=== PATIENT | male | born 1965 | race American Indian/Alaskan Native ===

== ENCOUNTER 2019-02-11 19:00 | Inpatient (IN) | payer MEDICARE ==
--- NOTE | 2019-02-11 20:06 | Event Note ---
ED Screening Note Date of service: 02/11/19 Time: 20:03 ED Screening Note: 54 y/o male with ESRD missed dialysis this morning. Goes on Friday , and Friday. PMH HTN, ESRD CVA with left side weakness. Uses a cane and walker to ambulate. This initial assessment/diagnostic orders/clinical plan/treatment(s) is/are subject to change based on patients health status, clinical progression and re- assessment by fellow clinical providers in the ED. Further treatment and workup at subsequent clinical providers discretion. Patient/guardian urged not to elope from the ED as their condition may be serious if not clinically assessed and managed. Initial orders include:
[2019-02-11 21:03] LABS: Albumin 3.5 g/dL (3.9-5)
[2019-02-11 21:23] LABS: Hematocrit 37.6 % (35.5-45.6); Hemoglobin 11.9 gm/dl (11.8-15.2); Mean Corpuscular HGB Conc 32 % (32-34); Mean Corpuscular Volume 84 fl (84-94); Platelet Count 148 K/mm3 (140-440); Red Blood Count 4.49 M/mm3 (3.65-5.03); Red Cell Distribution Width 16.5 % (13.2-15.2)
--- NOTE | 2019-02-11 21:47 | Emergency Department Report ---
ED General Adult HPI - General Chief complaint: Medical Clearance Stated complaint: NEED DIALYSIS Time Seen by Provider: 02/11/19 20:03 Source: patient, EMS Mode of arrival: Ambulatory Limitations: Physical Limitation - History of Present Illness Initial comments: This is a 54-year-old -[place] male who presents to the emergency room for dialysis. [place] not calm to take him to dialysis today. Past medical history of CVA with left-sided weakness, hypertension, and end-stage renal disease on dialysis Friday, , and Friday. Patient security system installer is Dr. Aponte at [facility] er. Denies shortness of breath, edema, chest pain, palpitations. Onset/Timin -: days(s) Radiation: non-radiation Severity scale (0 -10): 0 Associated Symptoms: denies other symptoms Treatments Prior to Arrival: none - Related Data Allergies Allergy/AdvReac Type Severity Reaction Status Date / Time No Known Allergies Allergy Unverified 02/11/19 20:08 ED Review of Systems ROS: Stated complaint: NEED DIALYSIS Other details as noted in HPI Constitutional: denies: chills, fever Respiratory: denies: cough, shortness of breath, wheezing ED Past Medical Hx - Past Medical History Hx Hypertension: Yes Hx CVA: Yes (L sided deficits) Hx Renal Disease: Yes (T,TH,Sat) - Surgical History Past Surgical History?: No Additional Surgical History: R chest port - Social History Smoking Status: Never Smoker Substance Use Type: None ED Physical Exam - General Limitations: Physical Limitation ED Course Vital Signs 02/11/19 20:02 Temperature 98.7 F Pulse Rate 96 H Respiratory 18 Rate Blood Pressure 144/110 O2 Sat by Pulse 100 Oximetry - Reevaluation(s) Reevaluation #1: 02/11/19 22:28 Quality Rep [address] system [address] Mckoy who agreed to admit patient for dialysis in the morning due to hyperkalemia. Reevaluation #2: 02/11/19 22:[address] Patel for admission for dialysis. She agreed to admit patient with consult to Dr. Mckoy. ED Medical Decision Making - Lab Data Result diagrams: 02/11/19 20:22 02/11/19 20:22 Lab Results 02/11/19 02/11/19 Range/Units 20:22 20:22 WBC 4.7 (4.5-11.0) K/mm3 RBC 4.49 (3.65-5.03) M/mm3 Hgb 11.9 (11.8-15.2) gm/dl Hct 37.6 (35.5-45.6) % MCV 84 (84-94) fl MCH 26 L (28-32) pg MCHC 32 (32-34) % RDW 16.5 H (13.2-15.2) % Plt Count 148 (140-440) K/mm3 Lymph % (Auto) Not Reportable [place] % (Auto) Not Reportable Eos % (Auto) Not Reportable Baso % (Auto) Not Reportable Lymph # Not Reportable [place] # Not Reportable Eos # Not Reportable Baso # Not Reportable Total Counted 100 Seg Neuts % (Manual) 62.0 (40.0-70.0) % Band Neutrophils % 0 % Lymphocytes % (Manual) 29.0 (13.4-35.0) % Reactive Lymphs % (Man) 0 % Monocytes % (Manual) 8.0 H (0.0-7.3) % Eosinophils % (Manual) 1.0 (0.0-4.3) % Basophils % (Manual) 0 (0.0-1.8) % Metamyelocytes % 0 % Myelocytes % 0 % Promyelocytes % 0 % Blast Cells % 0 % Seg Neutrophils # Not Reportable Seg Neutrophils # Man 2.9 (1.8-7.7) K/mm3 Band Neutrophils # 0.0 K/mm3 Lymphocytes # (Manual) 1.4 (1.2-5.4) K/mm3 Abs React Lymphs (Man) 0.0 K/mm3 Monocytes # (Manual) 0.4 (0.0-0.8) K/mm3 Eosinophils # (Manual) 0.0 (0.0-0.4) K/mm3 Basophils # (Manual) 0.0 (0.0-0.1) K/mm3 Metamyelocytes # 0.0 K/mm3 Myelocytes # 0.0 K/mm3 Promyelocytes # 0.0 K/mm3 Blast Cells # 0.0 K/mm3 Large Platelets 1+ Poikilocytosis 1+ Anisocytosis 1+ Sodium 137 (137-145) mmol/L Potassium 5.2 H (3.6-5.0) mmol/L Chloride 102.9 (98-107) mmol/L Carbon Dioxide 22 (22-30) mmol/L Anion Gap 17 mmol/L BUN 37 H (9-20) mg/dL Creatinine 9.2 H (0.8-1.5) mg/dL Estimated GFR 6 ml/min BUN/Creatinine Ratio 4 % Glucose 69 L (75-100) mg/dL Calcium 9.0 (8.4-10.2) mg/dL Total Bilirubin 0.40 (0.1-1.2) mg/dL AST 11 (5-40) units/L ALT 9 (7-56) units/L Alkaline Phosphatase 80 (35-129) units/L Total Protein 8.6 H (6.3-8.2) g/dL Albumin 3.5 L (3.9-5) g/dL Albumin/Globulin Ratio 0.7 % - Medical Decision Making Patient was examined by me. Patient is nontoxic appearing and stable. Vitals are normal. Obtained labs. Past medical history end-stage renal disease, hypertension and CVA with left sided weakness. Hyperkalemia findings on labs. Negative shortness of breath or hypoxia. Quality Rep security system installer Dr. Mckoy who agreed to admit patient for dialysis in the morning. Consulted hospitalist Dr. Patel who agreed to admit patient. Patient informed of ER plans. Critical care attestation.: If time is entered above; I have spent that time in minutes in the direct care of this critically ill patient, excluding procedure time. ED Disposition Clinical Impression: Hyperkalemia, ESRD (end stage renal disease) on dialysis Disposition: OP ADMIT IP TO THIS HOSP Is pt being admited?: Yes Condition: Stable
[2019-02-11 22:22] LABS: Anisocytosis 1+; Basophils % (Manual) 0 % (0.0-1.8); Large Platelets 1+; Poikilocytosis 1+; Total Cells Counted 100
[2019-02-11 22:43] LABS: Platelet Estimate Consistent w Auto
--- NOTE | 2019-02-11 23:34 | History and Physical Report ---
History of Present Illness Chief complaint: I missed dialysis History of present illness: 54-year-old male history of end-stage renal disease status post stroke with left-sided weakness. Also has hypertension, use a cane to ambulate. Has issues getting around. He missed dialysis today because the transportation van was not able to come up the hill to where he lives to take him to dialysis. He has dialysis with Dr. Aponte at [facility]. He denies shortness of breath, swelling or confusion. -He is rather frustrated because he states that they have done this in the past. That the transportation company/ambulance has refused to come up the steep driveway where he lives because it is inconvenient for them. And he would like to maintain compliance with dialysis. He states that the most of called his caregiver, they did not call him today about the refusal to come and pick him up. Past medical history; end-stage renal disease, history of stroke status post left-sided weakness, hypertension Surgical history; permacath placement, right chest wall Social history; lives at home, ambulates with a cane, denies history of smoking alcohol abuse or illicit drug use Family history; hypertension Medications and Allergies Allergies Allergy/AdvReac Type Severity Reaction Status Date / Time No Known Allergies Allergy Verified 02/11/19 23:50 Review of Systems All systems: negative Constitutional: no weight loss Ears, nose, mouth and throat: no ear pain Cardiovascular: no chest pain Respiratory: no cough Gastrointestinal: no abdominal pain Genitourinary Male: no dysuria Rectal: no pain Musculoskeletal: no neck stiffness Integumentary: no rash Neurological: no head injury Psychiatric: no anxiety Endocrine: no cold intolerance Hematologic/Lymphatic: no easy bruising Allergic/Immunologic: no urticaria Exam - Constitutional Vitals: Temp Pulse Resp BP Pulse Ox 98.7 F 81 15 147/97 97 02/11/19 20:02 02/11/19 22:30 02/11/19 23:04 02/11/19 22:30 02/11/19 23:04 General appearance: Present: no acute distress, well-nourished - EENT Eyes: Present: PERRL ENT: hearing intact, clear oral mucosa - Neck Neck: Present: supple, normal ROM - Respiratory Respiratory effort: normal Respiratory: bilateral: CTA - Cardiovascular Heart Sounds: Present: S1 & S2. Absent: rub, click - Extremities Extremities: pulses symmetrical, No edema Peripheral Pulses: within normal limits - Abdominal General gastrointestinal: Present: soft, non-tender, non-distended, normal bowel sounds Male genitourinary: Present: normal - Integumentary Integumentary: Present: clear, warm, dry - Musculoskeletal Musculoskeletal: gait normal, strength equal bilaterally - Psychiatric Psychiatric: appropriate mood/affect, intact judgment & insight - Neurologic Neurologic: CNII-XII intact, focal deficits (Left side profound weakness, left upper extremity is contracted) Results - Labs CBC & Chem 7: 02/11/19 20:22 02/11/19 20:22 Labs: Laboratory Last Values WBC 4.7 K/mm3 (4.5-11.0) 02/11/19 20: RBC 4.49 M/mm3 (3.65-5.03) 02/11/19 20:22 Hgb 11.9 gm/dl (11.8-15.2) 02/11/19 20: Hct 37.6 % (35.5-45.6) 02/11/19 20:22 MCV 84 fl (84-94) 02/11/19 20:22 MCH 26 pg (28-32) L 02/11/19 20:22 MCHC 32 % (32-34) 02/11/19 20: RDW 16.5 % (13.2-15.2) H 02/11/19 20:22 Plt Count 148 K/mm3 (140-440) 02/11/19 20:22 Lymph % (Auto) Not Reportable 02/11/19 20:22 [place] % (Auto) Not Reportable 02/11/19 20:22 Eos % (Auto) Not Reportable 02/11/19 20:22 Baso % (Auto) Not Reportable 02/11/19 20:22 Lymph # Not Reportable 02/11/19 20:22 [place] # Not Reportable 02/11/19 20:22 Eos # Not Reportable 02/11/19 20: Baso # Not Reportable 02/11/19 20:22 Add Manual Diff Complete 02/11/19 20:22 Total Counted 100 02/11/19 20: Seg Neuts % (Manual) 62.0 % (40.0-70.0) 02/11/19 20:22 Band Neutrophils % 0 % 10/10/19 20:22 Lymphocytes % (Manual) 29.0 % (13.4-35.0) 02/11/19 20:22 Reactive Lymphs % (Man) 0 % 02/11/19 20:22 Monocytes % (Manual) 8.0 % (0.0-7.3) H 02/11/19 20:22 Eosinophils % (Manual) 1.0 % (0.0-4.3) 02/11/19 20:22 Basophils % (Manual) 0 % (0.0-1.8) 02/11/19 20:22 Metamyelocytes % 0 % 02/11/19 20:22 Myelocytes % 0 % 02/11/19 20: Promyelocytes % 0 % 02/11/19 20: Blast Cells % 0 % 02/11/19 20:22 Nucleated RBC % Not Reportable 02/11/19 20:22 Seg Neutrophils # Not Reportable 02/11/19 20:22 Seg Neutrophils # Man 2.9 K/mm3 (1.8-7.7) 02/11/19 20:22 Band Neutrophils # 0.0 K/mm3 02/11/19 20:22 Lymphocytes # (Manual) 1.4 K/mm3 (1.2-5.4) 02/11/19 20:22 Abs React Lymphs (Man) 0.0 K/mm3 02/11/19 20:22 Monocytes # (Manual) 0.4 K/mm3 (0.0-0.8) 02/11/19 20:22 Eosinophils # (Manual) 0.0 K/mm3 (0.0-0.4) 02/11/19 20:22 Basophils # (Manual) 0.0 K/mm3 (0.0-0.1) 02/11/19 20:22 Metamyelocytes # 0.0 K/mm3 02/11/19 20:22 Myelocytes # 0.0 K/mm3 02/11/19 20:22 Promyelocytes # 0.0 K/mm3 02/11/19 20:22 Blast Cells # 0.0 K/mm3 02/11/19 20:22 WBC Morphology Not Reportable 02/11/19 20:22 Hypersegmented Neuts Not Reportable 02/11/19 20:22 Hyposegmented Neuts Not Reportable 02/11/19 20:22 Hypogranular Neuts Not Reportable 02/11/19 20:22 Smudge Cells Not Reportable 02/11/19 20:22 Toxic Granulation Not Reportable 02/11/19 20:22 Toxic Vacuolation Not Reportable 02/11/19 20:22 Dohle Bodies Not Reportable 02/11/19 20:22 Pelger-Huet Anomaly Not Reportable 02/11/19 20:22 Tammi Rods Not Reportable 02/11/19 20:22 Platelet Estimate Consistent w auto 02/11/19 20:22 Clumped Platelets Not Reportable 02/11/19 20:22 Plt Clumps, EDTA Not Reportable 02/11/19 20:22 Large Platelets 1+ 02/11/19 20:22 Giant Platelets Not Reportable 02/11/19 20:22 Platelet Satelliting Not Reportable 02/11/19 20:22 Plt Morphology Comment Not Reportable 02/11/19 20:22 RBC Morphology Not Reportable 02/11/19 20:22 Dimorphic RBCs Not Reportable 02/11/19 20:22 Polychromasia Not Reportable 02/11/19 20:22 Hypochromasia Not Reportable 02/11/19 20:22 Poikilocytosis 1+ 02/11/19 20:22 Anisocytosis 1+ 02/11/19 20:22 Microcytosis Not Reportable 02/11/19 20:22 Macrocytosis Not Reportable 02/11/19 20:22 Spherocytes Not Reportable 02/11/19 20:22 Pappenheimer Bodies Not Reportable 02/11/19 20:22 Sickle Cells Not Reportable 02/11/19 20:22 Target Cells Not Reportable 02/11/19 20:22 Tear Drop Cells Not Reportable 02/11/19 20:22 Ovalocytes Not Reportable 02/11/19 20:22 Helmet Cells Not Reportable 02/11/19 20:22 [place] Bodies Not Reportable 02/11/19 20:22 [place] Rings Not Reportable 02/11/19 20:22 [place] Cells Not Reportable 02/11/19 20:22 Bite Cells Not Reportable 02/11/19 20:22 Crenated Cell Not Reportable 02/11/19 20:22 Elliptocytes Not Reportable 02/11/19 20:22 Acanthocytes (Spur) Not Reportable 02/11/19 20:22 Rouleaux Not Reportable 02/11/19 20:22 Hemoglobin C Crystals Not Reportable 02/11/19 20:22 Schistocytes Not Reportable 02/11/19 20:22 Malaria parasites Not Reportable 02/11/19 20:22 Marciano Bodies Not Reportable 02/11/19 20:22 Hem Pathologist Commnt No 02/11/19 20:22 Sodium 137 mmol/L (137-145) 02/11/19 20:22 Potassium 5.2 mmol/L (3.6-5.0) H 02/11/19 20:22 Chloride 102.9 mmol/L (98-107) 02/11/19 20:22 Carbon Dioxide 22 mmol/L (22-30) 02/11/19 20:22 Anion Gap 17 mmol/L 02/11/19 20:22 BUN 37 mg/dL (9-20) H 02/11/19 20:22 Creatinine 9.2 mg/dL (0.8-1.5) H 02/11/19 20:22 Estimated GFR 6 ml/min 02/11/19 20:22 BUN/Creatinine Ratio 4 % 02/11/19 20:22 Glucose 69 mg/dL (75-100) L 02/11/19 20:22 Calcium 9.0 mg/dL (8.4-10.2) 02/11/19 20:22 Total Bilirubin 0.40 mg/dL (0.1-1.2) 02/11/19 20:22 AST 11 units/L (5-40) 02/11/19 20:22 ALT 9 units/L (7-56) 02/11/19 20:22 Alkaline Phosphatase 80 units/L (35-129) 02/11/19 20:22 Total Protein 8.6 g/dL (6.3-8.2) H 02/11/19 20:22 Albumin 3.5 g/dL (3.9-5) L 02/11/19 20:22 Albumin/Globulin Ratio 0.7 % 02/11/19 20:22 Assessment and Plan Assessment and plan: 54-year-old man who presents to the hospital missed dialysis due to issues with transportation Missed dialysis/mild hyperkalemia BUN 37, theatrical rigger was called, he admitted to the hospital for dialysis Hypertension Continue home meds, optimize as needed DVT prophylaxis; heparin subcu Preventative health counseling performed for 17 minutes Needs Case management to arrange for his transportation company to ensure that he does not have any further missed HD sessions
[2019-02-11] MEDS ORDERED: SODIUM CHLORIDE FLUSH SYRINGE 10 ML IV PRN (23:48)
[2019-02-11] MEDS ORDERED: TYLENOL PO PRN (23:48)
[2019-02-11] MEDS ORDERED: ZOFRAN IV PRN (23:48)
[2019-02-12] MEDS: HEPARIN SUB-Q SCH ×3 (05:49→21:22)
[2019-02-12 08:47] LABS: Calcium 8.7 mg/dL (8.4-10.2)
[2019-02-12] MEDS ORDERED: HEPARIN 10,000 UNITS/10 ML IV PRN (09:00)
[2019-02-12] MEDS ORDERED: NACL 0.9% 100 ML IV PRN (09:00)
--- NOTE | 2019-02-12 09:50 | Discharge Summary ---
Providers - Providers Date of Admission: 02/11/19 23:48 Date of discharge: 02/12/19 Attending physician: COURTNEY CANTU MD 02/11/19 22:35 Consult to Physician [CONS] Stat Comment: Consulting Provider: ELZBIETA PRADHAN Physician Instructions: Reason For Exam: ESRD, dialysis in AM, hyperkalemia Primary care physician: REMY ANDERSON MD Hospitalization Reason for admission: missed dialysis Condition: Stable Hospital course: 54-year-old male history of end-stage renal disease status post stroke with left-sided weakness. Also has hypertension, use a cane to ambulate. Has issues getting around. He missed dialysis today because the transportation van was not able to come up the hill to where he lives to take him to dialysis. He has dialysis with Dr. Aponte at [facility]. He denies shortness of breath, swelling or confusion. -He is rather frustrated because he states that they have done this in the past. That the transportation company/ambulance has refused to come up the steep driveway where he lives because it is inconvenient for them. And he would like to maintain compliance with dialysis. He states that the most of called his caregiver, they did not call him today about the refusal to come and pick him up. Patient admitted to the floor no other complaints, hyperkalemia. Nephrology saw him and will get dialysis and will be discharged home. Discussed his correctional case records supervisor and social media sr strategy manager to address this issue of transportation. Patient doesn't need refill of medications. Time spent for discharge: 32 minutes - Discharge Diagnoses (1) ESRD (end stage renal disease) on dialysis Status: Acute (2) Hyperkalemia Status: Acute Core Measure Documentation - Palliative Care Palliative Care/ Comfort Measures: Not Applicable - Core Measures Any of the following diagnoses?: history only (CVA) Exam - Physical Exam Narrative exam: Not in cardiopulmonary distress. The patient appeared well nourished and normally developed. Vital signs as documented. Head exam is unremarkable. No scleral icterus . Neck is without jugular venous distension, thyromegaly, or carotid bruits. Lungs are clear to auscultation. Cardiac exam reveals regular rate and Rhythm. First and second heart sounds normal. No murmurs, rubs or gallops. Abdominal exam reveals normal bowel sounds, no masses, no organomegaly and no aortic enlargement. Extremities are nonedematous and both femoral and pedal pulses are normal. CONCRETE SPREADER: Alert and oriented 3. Left-sided hemiparesis. - Constitutional Vitals: Temp Pulse Resp BP Pulse Ox 98.7 F 70 20 140/84 98 02/11/19 20:02 02/12/19 00:19 02/12/19 01:32 02/12/19 00:19 02/12/19 00:19 Plan Activity: advance as tolerated Weight Bearing Status: Non-Weight Bearing Diet: renal Follow up with: REMY ANDERSON MD [Primary Care Provider] - 7 Days
--- NOTE | 2019-02-12 12:13 | Progress Note ---
Assessment and Plan Assessment and plan: End-stage renal disease on hemodialysis Missed dialysis Hyperkalemia - Patient did get dialysis today History of CVA with left sided residual left sided hemiparesis - Supportive care - Resume home medications Discharge planning issues; patient didn't have nowhere to go, confirmed with LAZARA and his sister. LAZARA is working for SNF placement DVT prophylaxis - Heparin - Patient Problems (1) ESRD (end stage renal disease) on dialysis Current Visit: Yes Status: Acute (2) Hyperkalemia Current Visit: Yes Status: Acute History Interval history: Patient was seen and evaluated this morning, patient didn't have any complaints overnight. Hospitalist Physical - Physical exam Narrative exam: Not in cardiopulmonary distress. The patient appeared well nourished and normally developed. Vital signs as documented. Head exam is unremarkable. No scleral icterus . Neck is without jugular venous distension, thyromegaly, or carotid bruits. Lungs are clear to auscultation. Cardiac exam reveals regular rate and Rhythm. First and second heart sounds normal. No murmurs, rubs or gallops. Abdominal exam reveals normal bowel sounds, no masses, no organomegaly and no aortic enlargement. Extremities are nonedematous and both femoral and pedal pulses are normal. CORE MAKER: Alert and oriented 3. Left-sided hemiparesis. - Constitutional Vitals: Temp Pulse Resp BP Pulse Ox 98.7 F 70 20 140/84 98 02/11/19 20:02 02/12/19 00:19 02/12/19 01:32 02/12/19 00:19 02/12/19 00:19 General appearance: Present: no acute distress, well-nourished Results - Labs CBC & Chem 7: 02/11/19 20:22 02/12/19 07:23 Labs: Laboratory Last Values WBC 4.7 K/mm3 (4.5-11.0) 02/11/19 20:22 RBC 4.49 M/mm3 (3.65-5.03) 02/11/19 20:22 Hgb 11.9 gm/dl (11.8-15.2) 02/11/19 20:22 Hct 37.6 % (35.5-45.6) 02/11/19 20:22 MCV 84 fl (84-94) 02/11/19 20:22 MCH 26 pg (28-32) L 02/11/19 20:22 MCHC 32 % (32-34) 02/11/19 20:22 RDW 16.5 % (13.2-15.2) H 02/11/19 20:22 Plt Count 148 K/mm3 (140-440) 02/11/19 20:22 Lymph % (Auto) Not Reportable 02/11/19 20:22 [place] % (Auto) Not Reportable 02/11/19 20:22 Eos % (Auto) Not Reportable 02/11/19 20:22 Baso % (Auto) Not Reportable 02/11/19 20:22 Lymph # Not Reportable 02/11/19 20:22 [place] # Not Reportable 02/11/19 20:22 Eos # Not Reportable 02/11/19 20: Baso # Not Reportable 02/11/19 20:22 Add Manual Diff Complete 02/11/19 20:22 Total Counted 100 02/11/19 20: Seg Neuts % (Manual) 62.0 % (40.0-70.0) 02/11/19 20:22 Band Neutrophils % 0 % 02/11/19 20:22 Lymphocytes % (Manual) 29.0 % (13.4-35.0) 02/11/19 20:22 Reactive Lymphs % (Man) 0 % 02/11/19 20: Monocytes % (Manual) 8.0 % (0.0-7.3) H 02/11/19 20:22 Eosinophils % (Manual) 1.0 % (0.0-4.3) 02/11/19 20:22 Basophils % (Manual) 0 % (0.0-1.8) 02/11/19 20:22 Metamyelocytes % 0 % 02/11/19 20:22 Myelocytes % 0 % 02/11/19 20:22 Promyelocytes % 0 % 02/11/19 20:22 Blast Cells % 0 % 02/11/19 20:22 Nucleated RBC % Not Reportable 02/11/19 20:22 Seg Neutrophils # Not Reportable 02/11/19 20:22 Seg Neutrophils # Man 2.9 K/mm3 (1.8-7.7) 02/11/19 20:22 Band Neutrophils # 0.0 K/mm3 02/11/19 20:22 Lymphocytes # (Manual) 1.4 K/mm3 (1.2-5.4) 02/11/19 20:22 Abs React Lymphs (Man) 0.0 K/mm3 02/11/19 20:22 Monocytes # (Manual) 0.4 K/mm3 (0.0-0.8) 02/11/19 20:22 Eosinophils # (Manual) 0.0 K/mm3 (0.0-0.4) 02/11/19 20:22 Basophils # (Manual) 0.0 K/mm3 (0.0-0.1) 02/11/19 20:22 Metamyelocytes # 0.0 K/mm3 02/11/19 20:22 Myelocytes # 0.0 K/mm3 02/11/19 20:22 Promyelocytes # 0.0 K/mm3 02/11/19 20:22 Blast Cells # 0.0 K/mm3 02/11/19 20:22 WBC Morphology Not Reportable 02/11/19 20:22 Hypersegmented Neuts Not Reportable 02/11/19 20:22 Hyposegmented Neuts Not Reportable 02/11/19 20:22 Hypogranular Neuts Not Reportable 02/11/19 20:22 Smudge Cells Not Reportable 02/11/19 20:22 Toxic Granulation Not Reportable 02/11/19 20:22 Toxic Vacuolation Not Reportable 02/11/19 20:22 Dohle Bodies Not Reportable 02/11/19 20:22 Pelger-Huet Anomaly Not Reportable 02/11/19 20:22 Tammi Rods Not Reportable 02/11/19 20:22 Platelet Estimate Consistent w auto 02/11/19 20:22 Clumped Platelets Not Reportable 02/11/19 20:22 Plt Clumps, EDTA Not Reportable 02/11/19 20:22 Large Platelets 1+ 02/11/19 20:22 Giant Platelets Not Reportable 02/11/19 20:22 Platelet Satelliting Not Reportable 02/11/19 20:22 Plt Morphology Comment Not Reportable 02/11/19 20:22 RBC Morphology Not Reportable 02/11/19 20:22 Dimorphic RBCs Not Reportable 02/11/19 20:22 Polychromasia Not Reportable 02/11/19 20:22 Hypochromasia Not Reportable 02/11/19 20:22 Poikilocytosis 1+ 02/11/19 20:22 Anisocytosis 1+ 02/11/19 20:22 Microcytosis Not Reportable 02/11/19 20:22 Macrocytosis Not Reportable 02/11/19 20:22 Spherocytes Not Reportable 02/11/19 20:22 Pappenheimer Bodies Not Reportable 02/11/19 20:22 Sickle Cells Not Reportable 02/11/19 20:22 Target Cells Not Reportable 02/11/19 20:22 Tear Drop Cells Not Reportable 02/11/19 20:22 Ovalocytes Not Reportable 02/11/19 20:22 Helmet Cells Not Reportable 02/11/19 20:22 [place] Bodies Not Reportable 02/11/19 20:22 [place] Rings Not Reportable 02/11/19 20:22 [place] Cells Not Reportable 02/11/19 20:22 Bite Cells Not Reportable 02/11/19 20:22 Crenated Cell Not Reportable 02/11/19 20:22 Elliptocytes Not Reportable 02/11/19 20:22 Acanthocytes (Spur) Not Reportable 02/11/19 20:22 Rouleaux Not Reportable 02/11/19 20:22 Hemoglobin C Crystals Not Reportable 02/11/19 20:22 Schistocytes Not Reportable 02/11/19 20:22 Malaria parasites Not Reportable 02/11/19 20:22 Marciano Bodies Not Reportable 02/11/19 20:22 Hem Pathologist Commnt No 02/11/19 20:22 Sodium 141 mmol/L (137-145) 02/12/19 07:23 Potassium 5.3 mmol/L (3.6-5.0) H 02/12/19 07:23 Chloride 103.2 mmol/L (98-107) 02/12/19 07:23 Carbon Dioxide 20 mmol/L (22-30) L 02/12/19 07:23 Anion Gap 23 mmol/L 02/12/19 07:23 BUN 43 mg/dL (9-20) H 02/12/19 07:23 Creatinine 10.4 mg/dL (0.8-1.5) H 02/12/19 07:23 Estimated GFR 6 ml/min 02/12/19 07:23 BUN/Creatinine Ratio 4 % 02/12/19 07:23 Glucose 78 mg/dL (75-100) 02/12/19 07:23 Calcium 8.7 mg/dL (8.4-10.2) 02/12/19 07:23 Total Bilirubin 0.40 mg/dL (0.1-1.2) 02/11/19 20:22 AST 11 units/L (5-40) 02/11/19 20:22 ALT 9 units/L (7-56) 02/11/19 20:22 Alkaline Phosphatase 80 units/L (35-129) 02/11/19 20:22 Total Protein 8.6 g/dL (6.3-8.2) H 02/11/19 20:22 Albumin 3.5 g/dL (3.9-5) L 02/11/19 20:22 Albumin/Globulin Ratio 0.7 % 02/11/19 20:22 Active Medications - Current Medications Current Medications: Generic Name Dose Route Start Last Admin Trade Name Freq PRN Reason Stop Dose Admin Acetaminophen 650 mg 02/11/19 23:48 Tylenol PO Q4H PRN Pain MILD(1-3)/Fever >100.5/PARIS Heparin Sodium (Porcine) 5,000 unit 02/12/19 06:00 02/12/19 05:49 Heparin SUB-Q 5,000 unit Q8HR RIYA Administration Heparin Sodium (Porcine) 1,000 unit 02/12/19 09:00 Heparin 10,000 Units/10 Ml IV CURTIS PRN hemodialysis Sodium Chloride 100 mls @ 999 mls/hr 02/12/19 09:00 Nacl 0.9% IV CURTIS PRN Hypotension Ondansetron HCl 4 mg 02/11/19 23:48 Zofran IV Q8H PRN Nausea And Vomiting Sodium Chloride 10 ml 02/12/19 10:00 Sodium Chloride Flush Syringe 10 Ml IV BID RIYA Sodium Chloride 10 ml 02/11/19 23:48 Sodium Chloride Flush Syringe 10 Ml IV PRN PRN LINE FLUSH
[2019-02-12 13:44] LABS: Hepatitis B Surface Antigen Non-Reactive (Negative); Hepatitis C Virus Antibody Non-Reactive (NonReactive)
--- NOTE | 2019-02-12 16:57 | Consultation ---
History of Present Illness - Reason for Consult Consult date: 02/12/19 end stage renal disease, hyperkalemia Requesting physician: ALAYNA HUSTON - History of Present Illness 54-year-old male who is not known to me with history of hypertension, remote cerebrovascular accident, has been on hemodialysis for 3 months now on a Friday schedule at [facility] under the care of Dr. Aponte. Patient was meant to receive dialysis yesterday but the ambulance could not come to pick him to transport him to the clinic because of the steep driveway at the personal [facility] where he resides. Patient got concerned and so came to the hospital for evaluation. Potassium was high at 5.3 mmol per liter. I was called about the patient and decided on medical management last night and to dialyze him today. Patient feels better now. He denies any chest pain, shortness of breath or worsening swelling. 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 He lives at a personal [facility] now). denies: smoking, alcohol abuse, prescription drug abuse, IV drug use Family history: CAD (mother had acute myocardial infarction at age 73. She is .), other (father has chronic kidney disease. Brother is alive and well) Medications and Allergies Allergies Allergy/AdvReac Type Severity Reaction Status Date / Time No Known Allergies Allergy Verified 02/11/19 23:50 Active Meds: Active Medications Acetaminophen (Tylenol) 650 mg PO Q4H PRN PRN Reason: Pain MILD(1-3)/Fever >100.5/PARIS Heparin Sodium (Porcine) (Heparin) 5,000 unit SUB-Q Q8HR [facility] Last Admin: 02/12/19 05:49 Dose: 5,000 unit Documented by: Heparin Sodium (Porcine) (Heparin 10,000 Units/10 Ml) 1,000 unit IV CURTIS PRN PRN Reason: hemodialysis Sodium Chloride (Nacl 0.9%) 100 mls @ 999 mls/hr IV CURTIS PRN PRN Reason: Hypotension Ondansetron HCl (Zofran) 4 mg IV Q8H PRN PRN Reason: Nausea And Vomiting Sodium Chloride (Sodium Chloride Flush Syringe 10 Ml) 10 ml IV BID RIYA Sodium Chloride (Sodium Chloride Flush Syringe 10 Ml) 10 ml IV PRN PRN PRN Reason: LINE FLUSH Review of Systems All systems: negative (Constitutional: no fever or chills. No anorexia or weight loss. HEENT: No sore throat or sinus drainage no hearing or vision impairment . Cardiovascular: No chest pain, shortness of breath, palpitations, lower extremity swelling or dizziness. Respiratory: No cough, sputum, shortness of breath, hemoptysis or wheezing. Gastrointestinal: No nausea, vomiting, diarrhea, abdominal pain, hematemesis or melena. Genitourinary: No frequency urgency dysuria or hematuria. hematologic: No abnormal bleeding or bruising. Integumentary: no pruritus or rash. Neurological: No headache has left-sided weakness from stroke. No numbness, no syncope or seizures. Musculoskeletal: No joint pains no stiffness. Psychiatry: no anxiety or depression) Exam - Vital Signs Vital signs: Vital Signs Temp Pulse Resp BP Pulse Ox 98.7 F 96 H 18 144/110 100 02/11/19 20:02 02/11/19 20:02 02/11/19 20:02 02/11/19 20:02 02/11/19 20:02 - Physical Exam Narrative exam: Middle-aged -[place] male lying in bed in no acute distress HEENT: NCAT, pink oral mucous membrane Neck: Supple, no venous distention CVS: S1S2 RRR with no murmur, rub or gallop Chest: Clear to auscultation, right chest permacath Abdomen: Protuberant, soft, nontender, no organomegaly, bowel sounds are present Extremities: No edema Genitourinary deferred Skin warm and dry Neuro: Awake, alert left hemiplegia Results - Lab Results 02/11/19 20:22 02/12/19 07:23 Most recent lab results Calcium 8.7 mg/dL (8.4-10.2) 02/12/19 07:23 Assessment and Plan - Patient Problems (1) Hyperkalemia Current Visit: Yes Status: Acute Plan to address problem: Hyperkalemia treated medically last night and then patient received dialysis today. (2) Hypertensive chronic kidney disease with stage 5 chronic kidney disease or end stage renal disease Current Visit: Yes Status: Acute Plan to address problem: Follow-up blood pressure and current medications (3) ESRD (end stage renal disease) on dialysis Current Visit: Yes Status: Acute Plan to address problem: Patient received dialysis today and is stable. Discussed with him the results getting a permanent access AV fistula or graft since he has been on dialysis for 3 months already. Likelihood of Renal recovery is significantly decreased. Given the risk of long-term tunneled dialysis catheter, Patient needs to go ahead and get an AV access. He says he will discuss with his dialysis team when he goes to the outpatient dialysis clinic (4) Hemiplegia of left nondominant side as late effect of cerebrovascular disease Current Visit: Yes Status: Acute
[2019-02-12] MEDS: SODIUM CHLORIDE FLUSH SYRINGE 10 ML IV SCH ×2 (21:22)
[2019-02-13] MEDS: HEPARIN SUB-Q SCH ×3 (05:59→22:51)
--- NOTE | 2019-02-13 09:55 | Progress Note ---
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 DVT prophylaxis - Heparin - Patient Problems (1) ESRD (end stage renal disease) on dialysis Current Visit: Yes Status: Acute (2) Hyperkalemia Current Visit: Yes Status: Acute History Interval history: Patient was seen and evaluated this morning, patient didn't have any complaints overnight. Hospitalist Physical - Physical exam Narrative exam: Not in cardiopulmonary distress. The patient appeared well nourished and normally developed. Vital signs as documented. Head exam is unremarkable. No scleral icterus . Neck is without jugular venous distension, thyromegaly, or carotid bruits. Lungs are clear to auscultation. Cardiac exam reveals regular rate and Rhythm. First and second heart sounds normal. No murmurs, rubs or gallops. Abdominal exam reveals normal bowel sounds, no masses, no organomegaly and no aortic enlargement. Extremities are nonedematous and both femoral and pedal pulses are normal. 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 Left-sided hemiparesis. - Constitutional Vitals: Temp Pulse Resp BP Pulse Ox 98.2 F 80 20 124/86 96 02/13/19 05:26 02/13/19 05:26 02/13/19 05:26 02/13/19 05:26 02/13/19 05:26 General appearance: Present: no acute distress, well-nourished Results - Labs CBC & Chem 7: 02/11/19 20:22 02/12/19 07:23 Labs: Laboratory Last Values WBC 4.7 K/mm3 (4.5-11.0) 02/11/19 20:22 RBC 4.49 M/mm3 (3.65-5.03) 02/11/19 20:22 Hgb 11.9 gm/dl (11.8-15.2) 02/11/19 20:22 Hct 37.6 % (35.5-45.6) 02/11/19 20:22 MCV 84 fl (84-94) 02/11/19 20:22 MCH 26 pg (28-32) L 02/11/19 20:22 MCHC 32 % (32-34) 02/11/19 20:22 RDW 16.5 % (13.2-15.2) H 02/11/19 20:22 Plt Count 148 K/mm3 (140-440) 02/11/19 20:22 Lymph % (Auto) Not Reportable 02/11/19 20:22 [place] % (Auto) Not Reportable 02/11/19 20:22 Eos % (Auto) Not Reportable 02/11/19 20:22 Baso % (Auto) Not Reportable 02/11/19 20:22 Lymph # Not Reportable 02/11/19 20:22 [place] # Not Reportable 02/11/19 20:22 Eos # Not Reportable 02/11/19 20:22 Baso # Not Reportable 02/11/19 20:22 Add Manual Diff Complete 02/11/19 20:22 Total Counted 100 02/11/19 20:22 Seg Neuts % (Manual) 62.0 % (40.0-70.0) 02/11/19 20:22 Band Neutrophils % 0 % 02/11/19 20:22 Lymphocytes % (Manual) 29.0 % (13.4-35.0) 02/11/19 20:22 Reactive Lymphs % (Man) 0 % 02/11/19 20: Monocytes % (Manual) 8.0 % (0.0-7.3) H 02/11/19 20:22 Eosinophils % (Manual) 1.0 % (0.0-4.3) 02/11/19 20:22 Basophils % (Manual) 0 % (0.0-1.8) 02/11/19 20:22 Metamyelocytes % 0 % 02/11/19 20:22 Myelocytes % 0 % 02/11/19 20:22 Promyelocytes % 0 % 02/11/19 20:22 Blast Cells % 0 % 02/11/19 20:22 Nucleated RBC % Not Reportable 02/11/19 20:22 Seg Neutrophils # Not Reportable 02/11/19 20:22 Seg Neutrophils # Man 2.9 K/mm3 (1.8-7.7) 02/11/19 20:22 Band Neutrophils # 0.0 K/mm3 02/11/19 20:22 Lymphocytes # (Manual) 1.4 K/mm3 (1.2-5.4) 10/10/19 20:22 Abs React Lymphs (Man) 0.0 K/mm3 02/11/19 20:22 Monocytes # (Manual) 0.4 K/mm3 (0.0-0.8) 02/11/19 20:22 Eosinophils # (Manual) 0.0 K/mm3 (0.0-0.4) 02/11/19 20:22 Basophils # (Manual) 0.0 K/mm3 (0.0-0.1) 02/11/19 20:22 Metamyelocytes # 0.0 K/mm3 02/11/19 20:22 Myelocytes # 0.0 K/mm3 02/11/19 20:22 Promyelocytes # 0.0 K/mm3 02/11/19 20:22 Blast Cells # 0.0 K/mm3 02/11/19 20:22 WBC Morphology Not Reportable 02/11/19 20:22 Hypersegmented Neuts Not Reportable 02/11/19 20:22 Hyposegmented Neuts Not Reportable 02/11/19 20:22 Hypogranular Neuts Not Reportable 02/11/19 20:22 Smudge Cells Not Reportable 02/11/19 20:22 Toxic Granulation Not Reportable 02/11/19 20:22 Toxic Vacuolation Not Reportable 02/11/19 20:22 Dohle Bodies Not Reportable 02/11/19 20:22 Pelger-Huet Anomaly Not Reportable 02/11/19 20:22 Tammi Rods Not Reportable 02/11/19 20:22 Platelet Estimate Consistent w auto 02/11/19 20:22 Clumped Platelets Not Reportable 02/11/19 20:22 Plt Clumps, EDTA Not Reportable 02/11/19 20:22 Large Platelets 1+ 02/11/19 20:22 Giant Platelets Not Reportable 02/11/19 20:22 Platelet Satelliting Not Reportable 02/11/19 20:22 Plt Morphology Comment Not Reportable 02/11/19 20:22 RBC Morphology Not Reportable 02/11/19 20:22 Dimorphic RBCs Not Reportable 02/11/19 20:22 Polychromasia Not Reportable 02/11/19 20:22 Hypochromasia Not Reportable 02/11/19 20:22 Poikilocytosis 1+ 02/11/19 20:22 Anisocytosis 1+ 10/10/19 20:22 Microcytosis Not Reportable 02/11/19 20:22 Macrocytosis Not Reportable 02/11/19 20:22 Spherocytes Not Reportable 02/11/19 20:22 Pappenheimer Bodies Not Reportable 02/11/19 20:22 Sickle Cells Not Reportable 02/11/19 20:22 Target Cells Not Reportable 02/11/19 20:22 Tear Drop Cells Not Reportable 02/11/19 20:22 Ovalocytes Not Reportable 02/11/19 20:22 Helmet Cells Not Reportable 02/11/19 20:22 [place] Bodies Not Reportable 02/11/19 20:22 [place] Rings Not Reportable 02/11/19 20:22 Delia Cells Not Reportable 02/11/19 20:22 Bite Cells Not Reportable 02/11/19 20:22 Crenated Cell Not Reportable 02/11/19 20:22 Elliptocytes Not Reportable 02/11/19 20:22 Acanthocytes (Spur) Not Reportable 02/11/19 20:22 Rouleaux Not Reportable 02/11/19 20:22 Hemoglobin C Crystals Not Reportable 02/11/19 20:22 Schistocytes Not Reportable 02/11/19 20:22 Malaria parasites Not Reportable 02/11/19 20:22 Marciano Bodies Not Reportable 02/11/19 20:22 Hem Pathologist Commnt No 02/11/19 20:22 Sodium 141 mmol/L (137-145) 02/12/19 07:23 Potassium 5.3 mmol/L (3.6-5.0) H 02/12/19 07:23 Chloride 103.2 mmol/L (98-107) 02/12/19 07:23 Carbon Dioxide 20 mmol/L (22-30) L 02/12/19 07:23 Anion Gap 23 mmol/L 02/12/19 07:23 BUN 43 mg/dL (9-20) H 02/12/19 07:23 Creatinine 10.4 mg/dL (0.8-1.5) H 02/12/19 07:23 Estimated GFR 6 ml/min 02/12/19 07:23 BUN/Creatinine Ratio 4 % 02/12/19 07:23 Glucose 78 mg/dL (75-100) 02/12/19 07:23 Calcium 8.7 mg/dL (8.4-10.2) 02/12/19 07:23 Total Bilirubin 0.40 mg/dL (0.1-1.2) 02/11/19 20:22 AST 11 units/L (5-40) 02/11/19 20:22 ALT 9 units/L (7-56) 02/11/19 20:22 Alkaline Phosphatase 80 units/L (35-129) 02/11/19 20:22 Total Protein 8.6 g/dL (6.3-8.2) H 02/11/19 20:22 Albumin 3.5 g/dL (3.9-5) L 02/11/19 20:22 Albumin/Globulin Ratio 0.7 % 02/11/19 20:22 Hepatitis A IgM Ab Non-reactive (NonReactive) 02/12/19 08:20 Hep Bs Antigen Non-reactive (Negative) 02/12/19 08:20 Hep B Core IgM Ab Non-reactive (NonReactive) 02/12/19 08:20 Hepatitis C Antibody Non-reactive (NonReactive) 02/12/19 08:20 Active Medications - Current Medications Current Medications: Generic Name Dose Route Start Last Admin Trade Name Freq PRN Reason Stop Dose Admin Acetaminophen 650 mg 02/11/19 23:48 Tylenol PO Q4H PRN Pain MILD(1-3)/Fever >100.5/PARIS Heparin Sodium (Porcine) 5,000 unit 02/12/19 06:00 02/13/19 05:59 Heparin SUB-Q 5,000 unit Q8HR RIYA Administration Heparin Sodium (Porcine) 1,000 unit 02/12/19 09:00 Heparin 10,000 Units/10 Ml IV CURTIS PRN hemodialysis Sodium Chloride 100 mls @ 999 mls/hr 02/12/19 09:00 Nacl 0.9% IV CURTIS PRN Hypotension Ondansetron HCl 4 mg 02/11/19 23:48 Zofran IV Q8H PRN Nausea And Vomiting Sodium Chloride 10 ml 02/12/19 10:00 02/12/19 21:22 Sodium Chloride Flush Syringe 10 Ml IV 10 ml BID RIYA Administration Sodium Chloride 10 ml 02/11/19 23:48 Sodium Chloride Flush Syringe 10 Ml IV PRN PRN LINE FLUSH
--- NOTE | 2019-02-13 12:29 | Progress Note ---
Assessment and Plan - Patient Problems (1) Hyperkalemia Current Visit: Yes Status: Acute Plan to address problem: Hyperkalemia treated medically last night and then patient received dialysis yesterday (2) ESRD (end stage renal disease) on dialysis Current Visit: Yes Status: Acute Plan to address problem: Patient received dialysis yesterday and is stable. Discussed with him the results getting a permanent access AV fistula or graft since he has been on dialysis for 3 months already. Likelihood of Renal recovery is significantly decreased. Given the risk of long-term tunneled dialysis catheter, Patient needs to go ahead and get an AV access. He says he will discuss with his dialysis team when he goes to the outpatient dialysis clinic (3) Hypertensive chronic kidney disease with stage 5 chronic kidney disease or end stage renal disease Current Visit: Yes Status: Acute Plan to address problem: Follow-up blood pressure and current medications (4) Hemiplegia of left nondominant side as late effect of cerebrovascular disease Current Visit: Yes Status: Acute Subjective Date of service: 02/13/19 Principal diagnosis: ESRD Interval history: Pt awake, alert, in NAD Objective - Vital Signs Vital signs: Vital Signs - 12hr 02/13/19 05:26 Temperature 98.2 F Pulse Rate 80 Respiratory 20 Rate Blood Pressure 124/86 O2 Sat by Pulse 96 Oximetry - General Appearance General appearance: well-developed, well-nourished, appears stated age EENT: ATNC, PERRL, mucous membranes moist Neck: no JVD Respiratory: Present: Clear to Ascultation Cardiology: regular, S1S2 Gastrointestinal: normoactive bowel sounds Integumentary: no rash, other (no edema ) - Lab 02/11/19 20:22 02/12/19 07:23 Most recent lab results Calcium 8.7 mg/dL (8.4-10.2) 02/12/19 07:23 Medications & Allergies - Medications Allergies/Adverse Reactions: Allergies No Known Allergies Allergy (Verified 02/11/19 23:50) Active Medications: Generic Name Dose Route Start Last Admin Trade Name Freq PRN Reason Stop Dose Admin Acetaminophen 650 mg 02/11/19 23:48 Tylenol PO Q4H PRN Pain MILD(1-3)/Fever >100.5/PARIS Heparin Sodium (Porcine) 5,000 unit 02/12/19 06:00 02/13/19 05:59 Heparin SUB-Q 5,000 unit Q8HR RIYA Administration Heparin Sodium (Porcine) 1,000 unit 02/12/19 09:00 Heparin 10,000 Units/10 Ml IV CURTIS PRN hemodialysis Sodium Chloride 100 mls @ 999 mls/hr 02/12/19 09:00 Nacl 0.9% IV CURTIS PRN Hypotension Ondansetron HCl 4 mg 02/11/19 23:48 Zofran IV Q8H PRN Nausea And Vomiting Sodium Chloride 10 ml 02/12/19 10:00 02/12/19 21:22 Sodium Chloride Flush Syringe 10 Ml IV 10 ml BID RIYA Administration Sodium Chloride 10 ml 02/11/19 23:48 Sodium Chloride Flush Syringe 10 Ml IV PRN PRN LINE FLUSH
[2019-02-13] MEDS: SODIUM CHLORIDE FLUSH SYRINGE 10 ML IV SCH ×2 (13:04→22:51)
[2019-02-14] MEDS: HEPARIN SUB-Q SCH ×2 (05:20→23:21)
--- NOTE | 2019-02-14 09:02 | Progress Note ---
Assessment and Plan - Patient Problems (1) Hyperkalemia Current Visit: Yes Status: Acute Plan to address problem: s/p medical treatment and HD. recheck BMP in AM. cont 2g K renal diet (2) ESRD (end stage renal disease) on dialysis Current Visit: Yes Status: Acute Plan to address problem: Patient received dialysis yesterday and is stable. Discussed with him the results getting a permanent access AV fistula or graft since he has been on dialysis for 3 months already. Likelihood of Renal recovery is significantly decreased. Given the risk of long-term tunneled dialysis catheter, Patient needs to go ahead and get an AV access. He says he will discuss with his dialysis team when he goes to the outpatient dialysis clinic (3) Hypertensive chronic kidney disease with stage 5 chronic kidney disease or end stage renal disease Current Visit: Yes Status: Acute Plan to address problem: Follow-up blood pressure and current medications (4) Hemiplegia of left nondominant side as late effect of cerebrovascular disease Current Visit: Yes Status: Acute Subjective Date of service: 02/14/19 Principal diagnosis: ESRD Interval history: Pt awake, alert, in NAD Objective - Vital Signs Vital signs: Vital Signs - 12hr 02/13/19 02/14/19 21:32 04:31 Temperature 98.2 F 98.2 F Respiratory 20 20 Rate Blood Pressure 125/80 122/76 - General Appearance General appearance: well-developed, well-nourished, appears stated age EENT: ATNC, PERRL, mucous membranes moist Neck: no JVD Respiratory: Present: Clear to Ascultation Cardiology: regular, S1S2 Gastrointestinal: normoactive bowel sounds Integumentary: no rash, other (no edema ) Neurologic: no focal deficit, alert and oriented x3, strength 5/5, CN 3-12 intact Psychiatric: mood/affect appropriate, cooperative - Lab 02/11/19 20:22 02/12/19 07:23 Most recent lab results Calcium 8.7 mg/dL (8.4-10.2) 02/12/19 07:23 Medications & Allergies - Medications Allergies/Adverse Reactions: Allergies No Known Allergies Allergy (Verified 02/11/19 23:50) Active Medications: Generic Name Dose Route Start Last Admin Trade Name Freq PRN Reason Stop Dose Admin Acetaminophen 650 mg 02/11/19 23:48 Tylenol PO Q4H PRN Pain MILD(1-3)/Fever >100.5/PARIS Heparin Sodium (Porcine) 5,000 unit 02/12/19 06:00 02/14/19 05:20 Heparin SUB-Q 5,000 unit Q8HR RIYA Administration Heparin Sodium (Porcine) 1,000 unit 02/12/19 09:00 Heparin 10,000 Units/10 Ml IV CURTIS PRN hemodialysis Sodium Chloride 100 mls @ 999 mls/hr 02/12/19 09:00 Nacl 0.9% IV CURTIS PRN Hypotension Ondansetron HCl 4 mg 02/11/19 23:48 Zofran IV Q8H PRN Nausea And Vomiting Sodium Chloride 10 ml 02/12/19 10:00 02/13/19 22:51 Sodium Chloride Flush Syringe 10 Ml IV 10 ml BID RIYA Administration Sodium Chloride 10 ml 02/11/19 23:48 Sodium Chloride Flush Syringe 10 Ml IV PRN PRN LINE FLUSH
--- NOTE | 2019-02-14 14:48 | Progress Note ---
Assessment and Plan End-stage renal disease on hemodialysis - Missed dialysis prior to admission, nephrology following Hyperkalemia -Improved following dialysis History of CVA with left sided residual left sided hemiparesis - Supportive care - Resume home medications - Patient needed acute rehabilitation by [facility] therapy DVT prophylaxis - Heparin Discharge planning issues; patient will go to rehab. Physical exam: General appearance: well-developed, well-nourished, appears stated age EENT: ATNC, PERRL Neck: no JVD, no thyromegaly Respiratory: Present: Clear to Ascultation, Normal Exam Cardiology: regular, normal heart rate Gastrointestinal: normal, normoactive bowel sounds Integumentary: no rash, warm and dry Neurologic: Left-sided focal deficit, no asterixis Musculoskeletal: deferred Psychiatric: mood/affect appropriate Subjective Date of service: 02/14/19 Principal diagnosis: ESRD Interval history: Patient seen and examined No acute event overnight Denies any new issue Waiting for placement Objective - Constitutional Vitals: Vital Signs - 12hr 02/14/19 04:31 Temperature 98.2 F Respiratory 20 Rate Blood Pressure 122/76 - Labs CBC & Chem 7: 02/11/19 20:22 02/15/19 05:38
[2019-02-14] MEDS: SODIUM CHLORIDE FLUSH SYRINGE 10 ML IV SCH (22:00)
[2019-02-15] MEDS: SODIUM CHLORIDE FLUSH SYRINGE 10 ML IV SCH ×2 (01:21→23:16)
[2019-02-15] MEDS: HEPARIN SUB-Q SCH ×4 (01:23→23:15)
[2019-02-15 06:50] LABS: Calcium 8.8 mg/dL (8.4-10.2)
--- NOTE | 2019-02-15 13:42 | Progress Note ---
Assessment and Plan - Patient Problems (1) ESRD (end stage renal disease) on dialysis Current Visit: Yes Status: Chronic Plan to address problem: Will continue on inpatient MWF schedule. Discussed with patient that upon discharge he can go back to his regular TTS schedule. (2) Hyperkalemia Current Visit: Yes Status: Acute Plan to address problem: Will use 2K bath with dialysis. Counseled on importance of low potassium diet. (3) Hypertensive chronic kidney disease with stage 5 chronic kidney disease or end stage renal disease Current Visit: Yes Status: Chronic Plan to address problem: Continue to monitor on current antihypertensive regimen. Subjective Date of service: 02/15/19 Principal diagnosis: ESRD Interval history: No acute issues overnight. Seen earlier this am. Objective - Vital Signs Vital signs: Vital Signs - 12hr 02/15/19 02/15/19 04:52 12:14 Temperature 97.7 F 98.7 F Pulse Rate 64 67 Respiratory 16 18 Rate Blood Pressure 128/80 131/84 O2 Sat by Pulse 98 98 Oximetry - General Appearance General appearance: well-developed, well-nourished, appears stated age EENT: ATNC, PERRL Neck: no JVD, no thyromegaly Respiratory: Present: Clear to Ascultation, Normal Exam Cardiology: regular, normal heart rate Gastrointestinal: normal, normoactive bowel sounds Integumentary: no rash, warm and dry Neurologic: no focal deficit, no asterixis Musculoskeletal: deferred Psychiatric: mood/affect appropriate - Lab 02/11/19 20:22 02/15/19 05:38 Most recent lab results Calcium 8.8 mg/dL (8.4-10.2) 02/15/19 05:38 - Allied health notes Allied health notes reviewed: nursing Medications & Allergies - Medications Allergies/Adverse Reactions: Allergies No Known Allergies Allergy (Verified 02/11/19 23:50) Active Medications: Generic Name Dose Route Start Last Admin Trade Name Freq PRN Reason Stop Dose Admin Acetaminophen 650 mg 02/11/19 23:48 Tylenol PO Q4H PRN Pain MILD(1-3)/Fever >100.5/PARIS Heparin Sodium (Porcine) 5,000 unit 02/12/19 06:00 02/15/19 06:40 Heparin SUB-Q 5,000 unit Q8HR RIYA Administration Heparin Sodium (Porcine) 1,000 unit 02/12/19 09:00 Heparin 10,000 Units/10 Ml IV CURTIS PRN hemodialysis Sodium Chloride 100 mls @ 999 mls/hr 02/12/19 09:00 Nacl 0.9% IV CURTIS PRN Hypotension Ondansetron HCl 4 mg 02/11/19 23:48 Zofran IV Q8H PRN Nausea And Vomiting Sodium Chloride 10 ml 02/12/19 10:00 02/15/19 01:21 Sodium Chloride Flush Syringe 10 Ml IV 10 ml BID RIYA Administration Sodium Chloride 10 ml 02/11/19 23:48 Sodium Chloride Flush Syringe 10 Ml IV PRN PRN LINE FLUSH
--- NOTE | 2019-02-15 14:56 | Progress Note ---
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 Physical exam: General appearance: well-developed, well-nourished, appears stated age EENT: ATNC, PERRL Neck: no JVD, no thyromegaly Respiratory: Present: Clear to Ascultation, Normal Exam Cardiology: regular, normal heart rate Gastrointestinal: normal, normoactive bowel sounds Integumentary: no rash, warm and dry Neurologic: Left-sided focal deficit, no asterixis Musculoskeletal: deferred Psychiatric: mood/affect appropriate Subjective Date of service: 02/15/19 Principal diagnosis: ESRD Interval history: Patient seen and examined No acute event overnight Denies any new issue Waiting for placement Objective - Constitutional Vitals: Vital Signs - 12hr 02/15/19 02/15/19 04:52 12:14 Temperature 97.7 F 98.7 F Pulse Rate 64 67 Respiratory 16 18 Rate Blood Pressure 128/80 131/84 O2 Sat by Pulse 98 98 Oximetry - Labs CBC & Chem 7: 02/11/19 20:22 02/15/19 05:38 Labs: Abnormal lab results 02/15/19 Range/Units 05:38 Potassium 5.3 H (3.6-5.0) mmol/L Chloride 96.4 L (98-107) mmol/L BUN 46 H (9-20) mg/dL Creatinine 9.8 H (0.8-1.5) mg/dL
[2019-02-16] MEDS: HEPARIN SUB-Q SCH ×3 (06:45→23:18)
--- NOTE | 2019-02-16 09:30 | Progress Note ---
Assessment and Plan - Patient Problems (1) ESRD (end stage renal disease) on dialysis Current Visit: Yes Status: Chronic Plan to address problem: Will continue on inpatient MWF schedule. Discussed with patient that upon discharge he can go back to his regular TTS schedule. From nephrology standpoint patient is stable for discharge. (2) Hyperkalemia Current Visit: Yes Status: Acute Plan to address problem: Will use 2K bath with dialysis. Counseled on importance of low potassium diet. (3) Hypertensive chronic kidney disease with stage 5 chronic kidney disease or end stage renal disease Current Visit: Yes Status: Chronic Plan to address problem: Continue to monitor on current antihypertensive regimen. Subjective Date of service: 02/16/19 Principal diagnosis: ESRD Interval history: No acute issues overnight. Tolerated HD well. Pending DC possibly today. Objective - Vital Signs Vital signs: Vital Signs - 12hr 02/15/19 02/16/19 02/16/19 22:58 05:22 05:25 Temperature 99.4 F 98.3 F Pulse Rate 91 H 76 Respiratory 18 18 Rate Blood Pressure 117/62 110/78 O2 Sat by Pulse 96 97 Oximetry - General Appearance General appearance: well-developed, well-nourished EENT: ATNC, PERRL Neck: no JVD, no thyromegaly Respiratory: Present: Clear to Ascultation, Normal Exam Cardiology: regular, S1S2 Gastrointestinal: normal, normoactive bowel sounds Integumentary: no rash, warm and dry Neurologic: no focal deficit, alert and oriented x3 Musculoskeletal: other (-edema ) Psychiatric: mood/affect appropriate, cooperative - Lab 02/11/19 20:22 02/15/19 05:38 Most recent lab results Calcium 8.8 mg/dL (8.4-10.2) 02/15/19 05:38 - Allied health notes Allied health notes reviewed: nursing Medications & Allergies - Medications Allergies/Adverse Reactions: Allergies No Known Allergies Allergy (Verified 02/11/19 23:50) Active Medications: Generic Name Dose Route Start Last Admin Trade Name Freq PRN Reason Stop Dose Admin Acetaminophen 650 mg 02/11/19 23:48 Tylenol PO Q4H PRN Pain MILD(1-3)/Fever >100.5/PARIS Heparin Sodium (Porcine) 5,000 unit 02/12/19 06:00 02/16/19 06:45 Heparin SUB-Q 5,000 unit Q8HR RIYA Administration Heparin Sodium (Porcine) 1,000 unit 02/12/19 09:00 Heparin 10,000 Units/10 Ml IV CURTIS PRN hemodialysis Sodium Chloride 100 mls @ 999 mls/hr 02/12/19 09:00 Nacl 0.9% IV CURTIS PRN Hypotension Ondansetron HCl 4 mg 02/11/19 23:48 Zofran IV Q8H PRN Nausea And Vomiting Sodium Chloride 10 ml 02/12/19 10:00 02/15/19 23:16 Sodium Chloride Flush Syringe 10 Ml IV 10 ml BID RIYA Administration Sodium Chloride 10 ml 02/11/19 23:48 Sodium Chloride Flush Syringe 10 Ml IV PRN PRN LINE FLUSH
--- NOTE | 2019-02-16 17:32 | Progress Note ---
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 waiting on placement Physical exam: General appearance: well-developed, well-nourished, appears stated age EENT: ATNC, PERRL Neck: no JVD, no thyromegaly Respiratory: Present: Clear to Ascultation, Normal Exam Cardiology: regular, normal heart rate Gastrointestinal: normal, normoactive bowel sounds Integumentary: no rash, warm and dry Neurologic: Left-sided focal deficit, no asterixis Musculoskeletal: deferred Psychiatric: mood/affect appropriate Subjective Date of service: 02/16/19 Principal diagnosis: ESRD Interval history: Patient seen and examined No acute event overnight Denies any new issue Waiting for placement Objective - Labs CBC & Chem 7: 02/11/19 20:22 02/15/19 05:38
[2019-02-16] MEDS: SODIUM CHLORIDE FLUSH SYRINGE 10 ML IV SCH ×4 (18:39→23:29)
[2019-02-17] MEDS: HEPARIN SUB-Q SCH ×3 (06:05→21:18)
[2019-02-17] MEDS: SODIUM CHLORIDE FLUSH SYRINGE 10 ML IV SCH ×2 (09:35→21:20)
--- NOTE | 2019-02-17 09:35 | Progress Note ---
Assessment and Plan - Patient Problems (1) ESRD (end stage renal disease) on dialysis Current Visit: Yes Status: Chronic Plan to address problem: Will continue on inpatient MWF schedule. Discussed with patient that upon discharge he can go back to his regular TTS schedule. From nephrology standpoint patient is stable for discharge. (2) Hyperkalemia Current Visit: Yes Status: Acute Plan to address problem: Will use 2K bath with dialysis. Counseled on importance of low potassium diet. (3) Hypertensive chronic kidney disease with stage 5 chronic kidney disease or end stage renal disease Current Visit: Yes Status: Chronic Plan to address problem: Continue to monitor on current antihypertensive regimen. Subjective Date of service: 02/17/19 Principal diagnosis: ESRD Interval history: No acute issues, pending placement. Objective - Vital Signs Vital signs: Vital Signs - 12hr 02/16/19 02/17/19 22:00 00:22 Temperature 97.5 F L Pulse Rate 74 Pulse Rate [ 83 Apical] Respiratory 16 Rate Respiratory 18 Rate [denies] Blood Pressure 113/77 O2 Sat by Pulse 97 Oximetry - General Appearance General appearance: well-developed, well-nourished, appears stated age EENT: ATNC, PERRL Neck: no JVD, no thyromegaly Respiratory: Present: Clear to Ascultation, Normal Exam Cardiology: regular, S1S2 Gastrointestinal: normal, normoactive bowel sounds Integumentary: no rash, warm and dry Neurologic: no focal deficit, alert and oriented x3 Psychiatric: mood/affect appropriate, cooperative - Lab 02/11/19 20:22 02/15/19 05:38 Most recent lab results Calcium 8.8 mg/dL (8.4-10.2) 02/15/19 05:38 - Allied health notes Allied health notes reviewed: nursing Medications & Allergies - Medications Allergies/Adverse Reactions: Allergies No Known Allergies Allergy (Verified 02/11/19 23:50) Active Medications: Generic Name Dose Route Start Last Admin Trade Name Freq PRN Reason Stop Dose Admin Acetaminophen 650 mg 02/11/19 23:48 Tylenol PO Q4H PRN Pain MILD(1-3)/Fever >100.5/PARIS Heparin Sodium (Porcine) 5,000 unit 02/12/19 06:00 02/17/19 06:05 Heparin SUB-Q 5,000 unit Q8HR RIYA Administration Heparin Sodium (Porcine) 1,000 unit 02/12/19 09:00 Heparin 10,000 Units/10 Ml IV CURTIS PRN hemodialysis Sodium Chloride 100 mls @ 999 mls/hr 02/12/19 09:00 Nacl 0.9% IV CRUTIS PRN Hypotension Ondansetron HCl 4 mg 02/11/19 23:48 Zofran IV Q8H PRN Nausea And Vomiting Sodium Chloride 10 ml 02/12/19 10:00 02/16/19 23:29 Sodium Chloride Flush Syringe 10 Ml IV Not Given BID RIYA Sodium Chloride 10 ml 02/11/19 23:48 Sodium Chloride Flush Syringe 10 Ml IV PRN PRN LINE FLUSH
[2019-02-17] MEDS ORDERED: NACL 0.9 (PRIMING MACHINE ONLY DIALYSIS) MC ONE (13:20)
--- NOTE | 2019-02-17 13:59 | Progress Note ---
Assessment and Plan End-stage renal disease on hemodialysis - Missed dialysis prior to admission, nephrology following - on HD MWF Hyperkalemia -Improved following dialysis History of CVA with left sided residual left sided hemiparesis - Supportive care - cont aspirin and statin - Patient needed acute rehabilitation by physical therapy DVT prophylaxis - Heparin Discharge planning issues; patient will go to rehab. waiting on placement Physical exam: General appearance: well-developed, well-nourished, appears stated age EENT: ATNC, PERRL Neck: no JVD, no thyromegaly Respiratory: Present: Clear to Ascultation, Normal Exam Cardiology: regular, normal heart rate Gastrointestinal: normal, normoactive bowel sounds Integumentary: no rash, warm and dry Neurologic: Left-sided focal deficit, no asterixis Musculoskeletal: deferred Psychiatric: mood/affect appropriate Subjective Date of service: 02/17/19 Principal diagnosis: ESRD Interval history: Patient seen and examined No acute event overnight Denies any new issue Waiting for placement Objective - Constitutional Vitals: Vital Signs - 12hr 02/17/19 02/17/19 02/17/19 10:00 10:15 10:30 Temperature 97.7 F Pulse Rate 62 72 77 Respiratory 16 Rate Blood Pressure 125/70 119/78 129/84 02/17/19 02/17/19 02/17/19 10:45 11:00 11:15 Temperature Pulse Rate 77 80 80 Respiratory Rate Blood Pressure 117/77 121/82 123/79 - Labs CBC & Chem 7: 02/11/19 20:22 02/15/19 05:38
[2019-02-17] MEDS: HALFPRIN EC PO SCH (14:58)
[2019-02-17 15:32] LABS: Calcium 8.5 mg/dL (8.4-10.2)
[2019-02-18] MEDS: HEPARIN SUB-Q SCH ×2 (07:00→13:49)
[2019-02-18] MEDS: HALFPRIN EC PO SCH (09:40)
[2019-02-18] MEDS: SODIUM CHLORIDE FLUSH SYRINGE 10 ML IV SCH (09:41)
--- NOTE | 2019-02-18 10:58 | Discharge Summary ---
Providers - Providers Date of Admission: 02/15/19 10:03 Date of discharge: 02/18/19 Attending physician: SIL MEJÍA 02/11/19 22:35 Consult to Physician [CONS] Stat Comment: Consulting Provider: ELZBIETA PRADHAN Physician Instructions: Reason For Exam: ESRD, dialysis in AM, hyperkalemia 02/14/19 11:31 Physical Therapy Evaluation and Treat [CONS] Routine Comment: Reason For Exam: placement Primary care physician: REMY ANDERSON MD Hospitalization Condition: Stable Pertinent studies: None Hospital course: 54-year-old male who with history of hypertension, remote cerebrovascular accident, has been on hemodialysis for 3 months now at [facility] under the care of Dr. Aponte. Patient was meant to receive dialysis on hos scheduled day but the ambulance could not come to pick him to transport him to the clinic because of the steep driveway at the [facility]. Patient got concerned and so came to the hospital for evaluation. Patient was admitted for urgent HD. Nephrology was consulted and his HD was resumed. PT/OT evaluated him and recommended acute rehab. Patient was then discharged to acute rehab in stable condition. Discharge diagnosis and Mx: End-stage renal disease on hemodialysis - Missed dialysis prior to admission, nephrology was following - continued on HD MWF Hyperkalemia -Improved following dialysis History of CVA with left sided residual left sided hemiparesis and physical debility - provided Supportive care, PT/OT eval - cont aspirin and statin - Patient need acute rehabilitation by physical therapy DVT prophylaxis - Heparin Discharge planning issues; will go to acute rehab. Physical exam: General appearance: well-developed, well-nourished, appears stated age EENT: ATNC, PERRL Neck: no JVD, no thyromegaly Respiratory: Present: Clear to Ascultation, Normal Exam Cardiology: regular, normal heart rate Gastrointestinal: normal, normoactive bowel sounds Integumentary: no rash, warm and dry Neurologic: Left-sided focal deficit, no asterixis Musculoskeletal: deferred Psychiatric: mood/affect appropriate Disposition: [id number] Time spent for discharge: 34 minutes Core Measure Documentation - Palliative Care Palliative Care/ Comfort Measures: Not Applicable - Core Measures Any of the following diagnoses?: history only Exam - Constitutional Vitals: Temp Pulse Resp BP Pulse Ox 98.2 F 73 16 122/69 95 02/18/19 06:15 02/18/19 06:15 02/18/19 06:15 02/18/19 06:15 02/18/19 06:15 Plan Activity: up only with assistance, fall precautions Weight Bearing Status: Non-Weight Bearing Diet: renal Special Instructions: restrict fluid intake to (1.2 L daily) Follow up with: REMY ANDERSON MD [Primary Care Provider] - 7 Days
[2019-02-18 12:51] VITALS: BP 130/100
--- NOTE | 2019-02-18 14:13 | Progress Note ---
Assessment and Plan - Patient Problems (1) ESRD (end stage renal disease) on dialysis Current Visit: Yes Status: Chronic Plan to address problem: Will continue on inpatient MWF schedule. Discussed with patient that upon discharge he can go back to his regular TTS schedule. From nephrology standpoint patient is stable for discharge. (2) Hyperkalemia Current Visit: Yes Status: Acute Plan to address problem: Counseled on importance of low potassium diet. Improved with HD (3) Hypertensive chronic kidney disease with stage 5 chronic kidney disease or end stage renal disease Current Visit: Yes Status: Chronic Plan to address problem: Continue to monitor on current antihypertensive regimen. Subjective Date of service: 02/18/19 Principal diagnosis: ESRD Interval history: No acute issues, pending DC today Objective - Vital Signs Vital signs: Vital Signs - 12hr 02/18/19 02/18/19 06:15 12:27 Temperature 98.2 F 97.8 F Pulse Rate 73 81 Respiratory 16 18 Rate Blood Pressure 122/69 130/100 O2 Sat by Pulse 95 85 Oximetry - General Appearance General appearance: well-developed, well-nourished, appears stated age EENT: ATNC, PERRL Neck: no JVD, no thyromegaly Respiratory: Present: Clear to Ascultation, Normal Exam Cardiology: regular, S1S2 Gastrointestinal: normal, normoactive bowel sounds Integumentary: no rash, warm and dry Neurologic: no focal deficit, no asterixis, alert and oriented x3 Musculoskeletal: deferred Psychiatric: mood/affect appropriate, cooperative - Lab 02/11/19 20:22 02/17/19 14:42 Most recent lab results Calcium 8.5 mg/dL (8.4-10.2) 02/17/19 14:42 - Allied health notes Allied health notes reviewed: nursing Medications & Allergies - Medications Allergies/Adverse Reactions: Allergies No Known Allergies Allergy (Verified 02/11/19 23:50) Home Medications: Home Medications Medication Instructions Recorded Confirmed Last Taken Type Aspirin EC [Halfprin EC] 81 mg PO QDAY tablet 02/18/19 Unknown Rx AtorvaSTATin [Lipitor] 40 mg PO QHS tablet 02/18/19 Unknown Rx Active Medications: Generic Name Dose Route Start Last Admin Trade Name Freq PRN Reason Stop Dose Admin Acetaminophen 650 mg 02/11/19 23:48 Tylenol PO Q4H PRN Pain MILD(1-3)/Fever >100.5/PARIS Aspirin 81 mg 02/17/19 14:00 02/18/19 09:40 Halfprin Ec PO 81 mg QDAY RIYA Administration Atorvastatin Calcium 40 mg 02/17/19 22:00 02/17/19 21:19 Lipitor PO 40 mg QHS RIYA Administration Heparin Sodium (Porcine) 5,000 unit 02/12/19 06:00 02/18/19 13:49 Heparin SUB-Q 5,000 unit Q8HR RIYA Administration Heparin Sodium (Porcine) 1,000 unit 02/12/19 09:00 Heparin 10,000 Units/10 Ml IV CURTIS PRN hemodialysis Sodium Chloride 100 mls @ 999 mls/hr 02/12/19 09:00 Nacl 0.9% IV CURTIS PRN Hypotension Ondansetron HCl 4 mg 02/11/19 23:48 Zofran IV Q8H PRN Nausea And Vomiting Sodium Chloride 10 ml 02/12/19 10:00 02/18/19 09:41 Sodium Chloride Flush Syringe 10 Ml IV 10 ml BID RIYA Administration Sodium Chloride 10 ml 02/11/19 23:48 Sodium Chloride Flush Syringe 10 Ml IV PRN PRN LINE FLUSH
== END 2019-02-18 15:15 | DRG 640 ==
LOC: ED 19:00 → 3A 23:48 → OBSVTOIN 02-15 10:03
PROVIDERS: ADMIT Internal Medicine; ATTEND Internal Medicine
PROC: 5A1D70Z Performance of Urinary Filtration, Intermittent, Less than 6 Hours Per Day (ICD-10-PCS; principal; 2019-02-12)
PROC: 5A1D70Z Performance of Urinary Filtration, Intermittent, Less than 6 Hours Per Day (ICD-10-PCS; 2019-02-15)
PROC: 5A1D70Z Performance of Urinary Filtration, Intermittent, Less than 6 Hours Per Day (ICD-10-PCS; 2019-02-17)
DX: E87.5 Hyperkalemia (principal); N18.6 End stage renal disease; I12.0 Hypertensive chronic kidney disease with stage 5 chronic kidney disease or end stage renal disease; I69.354 Hemiplegia and hemiparesis following cerebral infarction affecting left non-dominant side; Z99.2 Dependence on renal dialysis; Z79.82 Long term (current) use of aspirin; Z79.899 Other long term (current) drug therapy; Z82.49 Family history of ischemic heart disease and other diseases of the circulatory system
CPT/HCPCS: 36415; 80048; 80053; 80074; 85007; 85025; 87116; 96374; G0378; A9270-GY; J1644; J7030